=== PATIENT | female | born 1955 | race Caucasian/White ===

== ENCOUNTER 2024-12-29 00:10 | Emergency (ER) | payer BC, MEDICAID ==
[~2024-12-29] VITALS: Ht 165.1 cm; Wt 62.2 kg
[2024-12-29] MEDS ORDERED: ACETAMINOPHEN 325MG TABLET PO ONE (00:30)
[2024-12-29 00:40] VITALS: TEMP 36.7; O2SAT 99
[2024-12-29] MEDS: KETOROLAC 30MG/ML VIAL IM ONE (01:15)
[2024-12-29] MEDS ORDERED: IBUP-2029 MT (02:35)
[2024-12-29 02:50] VITALS: BP 114/68; PULSE 97; RESP 16; O2SAT 100
== END 2024-12-29 02:50 | disposition home or self-care (01) ==
LOC: ER 00:23
DX: S00.03XA Contusion of scalp, initial encounter (principal); E11.9 Type 2 diabetes mellitus without complications; Z79.899 Other long term (current) drug therapy; Z95.0 Presence of cardiac pacemaker; Z88.1 Allergy status to other antibiotic agents; Z88.2 Allergy status to sulfonamides; W01.0XXA Fall on same level from slipping, tripping and stumbling without subsequent striking against object, initial encounter; Y93.89 Activity, other specified; Y92.89 Other specified places as the place of occurrence of the external cause; Y99.8 Other external cause status
CPT/HCPCS: 99285; 70450; 96372; J1885